=== PATIENT | male | born 1960 | race Caucasian/White ===

== ENCOUNTER 2024-02-25 09:56 | Observation (INO) | payer MEDICARE, OTHER ==
[~2024-02-25] VITALS: Ht 170.2 cm; Wt 96.5 kg
[2024-02-25] MEDS ORDERED: HYDROmorphone HCl/Pf 1MG SYR IV ONE ×2 (10:45→14:40)
[2024-02-25] MEDS ORDERED: Diazepam 5 MG / ML 2ML SYR IV ONE ×2 (10:45→12:15)
[2024-02-25] MEDS ORDERED: Ondansetron HCl 2 MG / ML 2ML Vial IV ONE (10:50)
[2024-02-25 11:13] LABS: BASOPHILS ABSOLUTE AUTO 0.07 K/mm3 (0.00-0.23); BASOPHILS PERCENT AUTO 1 % (0-2); EOSINOPHILS ABSOLUTE AUTO 0.38 K/mm3 (0.00-0.68); EOSINOPHILS PERCENT AUTO 4 % (0-6); Hemoglobin 14.1 g/dL (13.5-17.5); IMMATURE GRAN ABSOLUTE AUTO 0.06 K/mm3 (0.00-0.10); IMMATURE GRAN PERCENT AUTO 1 % (0-1); LYMPHOCYTES ABSOLUTE AUTO 2.35 K/mm3 (0.84-5.20); LYMPHOCYTES PERCENT AUTO 22 % (21-46); MONOCYTES ABSOLUTE AUTO 0.88 K/mm3 (0.16-1.47); MONOCYTES PERCENT AUTO 8 % (4-13); Mean Corpuscular HGB 31.7 pg (26.0-34.0); Mean Corpuscular HGB Conc 35.3 g/dL (31.5-36.5); Mean Corpuscular Volume 90 fL (80-100); Mean Platelet Volume 9.6 fL (9.1-12.4); NEUTROPHILS ABSOLUTE AUTO 6.99 K/mm3 (1.96-9.15); NEUTROPHILS PERCENT AUTO 65 % (41-73); Platelet Count 322 K/mm3 (150-400); RDW Standard Deviation 39.2 fL (35.1-46.3); Red Blood Cell Count 4.45 M/mm3 (4.30-5.90); White Blood Cell Count 10.73 K/mm3 (4.00-11.30)
[2024-02-25 11:48] LABS: Albumin, Blood 3.3 g/dL (3.4-5.0); Albumin/Globulin Ratio 0.9 (0.8-1.8); Bilirubin, Total 0.7 mg/dL (0.1-1.0); Bun/Creatinine Ratio 15.7 (12.0-20.0); C-REACTIVE PROTEIN, EXT RANGE 6.44 mg/dL (0.000-0.300); Calcium, Blood 8.9 mg/dL (8.5-10.1); Creatinine, Blood 0.96 mg/dL (0.60-1.20); Globulin, Blood 3.6 g/dL (2.2-4.0); Magnesium, Blood 2.1 mg/dL (1.6-2.4); Potassium, Blood 3.7 mmol/L (3.5-5.5); Total Protein, Blood 6.9 g/dL (6.4-8.2)
[2024-02-25] MEDS ORDERED: Dexamethasone Sod Phos 10 MG/ML 1ML VIAL IV ONE (14:25)
[2024-02-25] MEDS ORDERED: FLU VACC TS2024-25(6MOS UP)/PF 45 MCG/0.5 ML SYRINGE IM PRN (16:50)
[2024-02-25] MEDS ORDERED: Ondansetron 4 MG TAB PO PRN (16:50)
[2024-02-25] MEDS ORDERED: ATORVASTATIN CA20 MG PO (17:32)
[2024-02-25] MEDS ORDERED: EUTHYROX50 MC1 PO (17:32)
[2024-02-25] MEDS ORDERED: LISI20 PO (17:32)
[2024-02-25] MEDS ORDERED: HYDCHL25 PO (17:32)
[2024-02-25 17:35] VITALS: BP 167/90
--- NOTE | 2024-02-25 18:26 | NUR ---
SHIFT SUMMARY PT ARRIVED TO THE FLOOR AT 1735. PT A&OX4, AMB FROM GURNEY TO BED W/ 1P ASSIST, TOLERATING PO, AND ADMITTED TO 10/04 PAIN. PT HYPERTENSIVE, BUT ASYMPTOMATIC. PT STATES HTN IS BASELINE. NO BP OR PAIN MEDICATION ORDER AT THIS TIME, AWAITING ORDERS FROM MD. PT ORIENTED TO ROOM AND CALL LIGHT. CALL LIGHT PLACED WITHIN REACH.
[2024-02-25 20:22] VITALS: BP 164/90
[2024-02-25] MEDS ORDERED: OxyCODONE HCL 5 MG TAB PO PRN (20:25)
[2024-02-25] MEDS ORDERED: Methocarbamol 500 MG Tab PO PRN (20:40)
[2024-02-25 22:32] VITALS: BP 169/92
[2024-02-26] MEDS ORDERED: MethylPREDNISolone Sod Succ 40 MG VIAL IV SCH
[2024-02-26 02:49] VITALS: BP 173/91
[2024-02-26 05:21] LABS: BASOPHILS ABSOLUTE AUTO 0.01 K/mm3 (0.00-0.23); BASOPHILS PERCENT AUTO 0 % (0-2); EOSINOPHILS PERCENT AUTO 0 % (0-6); Hematocrit 40.7 % (37.0-53.0); Hemoglobin 14.3 g/dL (13.5-17.5); IMMATURE GRAN ABSOLUTE AUTO 0.06 K/mm3 (0.00-0.10); IMMATURE GRAN PERCENT AUTO 0 % (0-1); LYMPHOCYTES ABSOLUTE AUTO 0.81 K/mm3 (0.84-5.20); LYMPHOCYTES PERCENT AUTO 6 % (21-46); MONOCYTES ABSOLUTE AUTO 0.23 K/mm3 (0.16-1.47); MONOCYTES PERCENT AUTO 2 % (4-13); Mean Corpuscular HGB 31.3 pg (26.0-34.0); Mean Corpuscular HGB Conc 35.1 g/dL (31.5-36.5); Mean Corpuscular Volume 89 fL (80-100); Mean Platelet Volume 9.7 fL (9.1-12.4); NEUTROPHILS PERCENT AUTO 92 % (41-73); Platelet Count 343 K/mm3 (150-400); RDW Coefficient Variation 11.9 % (11.7-14.2); RDW Standard Deviation 38.6 fL (35.1-46.3); Red Blood Cell Count 4.57 M/mm3 (4.30-5.90); White Blood Cell Count 13.41 K/mm3 (4.00-11.30)
[2024-02-26 05:44] LABS: Albumin, Blood 3.1 g/dL (3.4-5.0); Albumin/Globulin Ratio 0.8 (0.8-1.8); Bilirubin, Total 0.5 mg/dL (0.1-1.0); Bun/Creatinine Ratio 20.8 (12.0-20.0); Calcium, Blood 9.4 mg/dL (8.5-10.1); Creatinine, Blood 0.87 mg/dL (0.60-1.20); Magnesium, Blood 2.3 mg/dL (1.6-2.4); Potassium, Blood 4.4 mmol/L (3.5-5.5); Total Protein, Blood 7.1 g/dL (6.4-8.2)
--- NOTE | 2024-02-26 06:18 | NUR ---
SHIFT SUMMARY PT VERBALIZING FRUSTRATION WITH HOSPITAL STAY THROUGH THE NIGHT, STATING ON MULTIPLE OCCASSIONS, "I SHOULD JUST GO HOME". PT EDUCATED ON PLAN OF CARE INCLUDING IV STEROIDS, AWAITING LAB RESULTS, MONITORING PAIN AND SYPTOMS OF WEAKNESS. PT AMBULATED IN [place] X2 WITH NURSING ASSISTANCE USING WALKER. AMBULATED WITH A MUCH STEADIER GAIT AND LESS WEAKNESS THIS AM. LAST NIGHT HE ONLY AMBULATED APPROX. 80 FEET BEFORE BECOMING PROFOUNDLY WEAK. THIS AM HE AMBULATED APPROX. 250 FEET AND CARRIED THE WALKER FOR MUCH OF THIS. PT ALSO STATES HE IS VOIDING WITHOUT DIFFICULTY THIS AM. PT ENCOURAGED TO STAY UNTIL THE DOCTORS ROUND ON HIM. MEDICATED FOR PAIN PER EMAR. PT CURRENTLY SITING ON EDGE OF BED, CALL LIGHT WITHIN REACH.
[2024-02-26 07:48] VITALS: BP 151/100
[2024-02-26] MEDS ORDERED: Enoxaparin 40 MG/0.4 ML SYR SC SCH (09:00)
--- NOTE | 2024-02-26 09:14 | NUR ---
PT LEFT AMA PT LEFT AMA AT APPROX 0915. PT EDUCATED ON THE BENEFITS AND RISKS AND REPORTED UNDERSTANDING. PT A&OX4, VSS, AND DENIED PAIN. PT STATED, "I FEEL LIKE I DON'T NEED TO BE HERE. I AM NOT SICK LIKE THESE OTHER PEOPLE. I THINK I JUST OVER DID IT AT HOME." NOTIFIED. PT WAS ESCOURTED OUT TO THE PT ENTRANCE BY RACHEL LEWIS TO BE TRANSPORTED HOME BY A FRIEND.
== END 2024-02-26 09:35 | disposition left against medical advice (07) ==
LOC: ER 09:56 → MEDS 09:57 → ER 17:33 → MEDS 18:04
PROVIDERS: Student in an Organized Health Care Education/Training Program; ADMIT Internal Medicine
DX: R53.1 Weakness (principal); I10 Essential (primary) hypertension; E55.9 Vitamin D deficiency, unspecified; Z53.29 Procedure and treatment not carried out because of patient's decision for other reasons; R73.03 Prediabetes; Z88.1 Allergy status to other antibiotic agents; Z88.5 Allergy status to narcotic agent; Z79.899 Other long term (current) drug therapy
CPT/HCPCS: 36415; 72158; 80053; 83735; 85025; 85651; 86140; 96374-59; 96375; 96375-59; 96376; 96376-59; 99284-25; A9270; A9579; G0378; J1100; J1171; J2405; J2919; J3360